=== PATIENT | male | born 1995 | race Caucasian/White ===

== ENCOUNTER 2022-03-31 20:17 | Emergency (ER) | payer MEDICAID ==
[2022-03-31 22:26] VITALS: O2SAT 99
[2022-03-31 23:09] LABS: Absolute Neutrophil Ct (ANC) 3.96 x10^3/uL (1.4-6.9); Basophil (Absolute #) 0.05 x10^3/uL (0-0.4); Eosinophil % 2.7 % (0.00-5.0); Eosinophil (Absolute #) 0.16 x10^3/uL (0-0.5); Hematocrit 39.9 % (42-50); Lymphocyte (Absolute #) 1.17 x10^3/uL (1.0-4.6); Lymphocytes % 19.4 % (24.0-44.0); Mean Cell Volume 93.2 fL (78-100); Mean Corpuscular Hemoglobin 30.4 pg (26-32); Mean Corpuscular Hgb Concent. 32.6 g/dL (32-36); Mean Platelet Volume 11.1 fL (7.5-11.0); Monocyte (Absolute #) 0.66 x10^3/uL (0.0-1.3); Monocytes % 10.9 % (0.0-12.0); Neutrophil % 65.7 % (36.0-66.0); Platelet Count 249 x10^3/uL (150-450); Red Blood Count 4.28 x10^6/uL (4.1-5.6); Red Cell Distribution Width 12.6 % (11.5-14.0)
[2022-03-31 23:16] LABS: ALBUMIN 4.6 g/dL (3.5-5.0); ALKALINE PHOSPHATASE 102 U/L (38-126); AMYLASE 79 U/L (30-110); ANION GAP 12.9 MEQ/L (5-15); BLOOD UREA NITROGEN 12 mg/dL (9-20); CHLORIDE 107 mmol/L (98-107); Calcium 9.1 mg/dL (8.4-10.2); Carbon Dioxide 27 mmol/L (22-30); Creatinine 1 1.16 mg/dL (0.66-1.25); EST GLOMERULAR FILTRATION RATE > 60.0 ML/MIN; Glucose 107 mg/dL (74-106); LIPASE 143 U/L (23-300); SGOT/AST 50 U/L (17-59); SGPT/ALT 54 U/L (0-50); SODIUM 143 mmol/L (137-145); Total Protein 8.2 g/dL (6.3-8.2)
--- NOTE | 2022-03-31 23:36 | ERPHSYRPT ---
- History of Present Illness Historian: patient Exam Limitations: no limitations Patient Subjective Stated Complaint: Generalized sharp abdominal pain. Triage Nursing Assessment: Pt ambulated to room. A&O X 3. Skin color WNL for race. Pt c/o generalized sharp abdominal pain across all 4 quadrants. Lung sounds clear, bowel sounds present x 4. Abdomen soft and non-distended. Denies N/V. Does report some diarrhea 03/29/22 but none today. Physician History: 28 yo wm w epigastric pain x 2 days. Pain is 8/10 and stabbing. Nothing makes it better or worse. He denies N/V/D/fever/melena/hematochezia/dysuria/hematuria/cough/coryza. Timing/Duration: day(s) (2 days) Quality: sharpness, stabbing Abdominal Pain Onset Location: epigastric Pain Radiation: no radiation Severity of Pain-Max: severe Severity of Pain-Current: severe Modifying Factors: Improves With: nothing Associated Symptoms: No back, No chest pain, No diaphoresis, No diarrhea, No fev er/chills, No fatigue, No headache, No heartburn, No loss of appetite, No nausea, No neck pain, No rash, No shortness of breath, No syncope, No testicular pain, No vomiting, No weakness Previous symptoms: no prior history Allergies/Adverse Reactions: No Known Drug Allergies Allergy (Unverified 03/31/22 22:06) Home Medications: Clobazam [Onfi] 20 mg PO QAM 03/31/22 [History] Clobazam [Onfi] 40 mg PO QHS 03/31/22 [History] Escitalopram Oxalate 5 mg PO QAM 03/31/22 [History] LORazepam [Lorazepam] 1 mg PO TID 03/31/22 [History] Lamotrigine 100 mg [lamICTAL 100MG TABLET] 300 mg PO QHS 03/31/22 [History] Topiramate 100 mg [Topamax 100 MG] 100 mg PO QAM 03/31/22 [History] Topiramate 100 mg [Topamax 100 MG] 200 mg PO QHS 03/31/22 [History] Trazodone HCl 100 mg PO QHS 03/31/22 [History] lamoTRIgine [Lamotrigine] 150 mg PO QAM 03/31/22 [History] Travel Risk - International Travel Have you traveled outside of the country in past 3 weeks: No - Coronavirus Screening Are you exhibiting any of the following symptoms?: No Close contact with a COVID-19 positive Pt in past 14-21 Days: No - Vaccine Status Have you recieved a Covid-19 vaccination: No - Review of Systems Constitutional: No Symptoms Eyes: No Symptoms Ears, Nose, & Throat: No Symptoms Respiratory: No Symptoms Cardiac: No Symptoms Abdominal/Gastrointestinal: No Symptoms, Abdominal Pain Genitourinary Symptoms: No Symptoms Musculoskeletal: No Symptoms Skin: No Symptoms Neurological: No Symptoms Psychological: No Symptoms Endocrine: No Symptoms Hematologic/Lymphatic: No Symptoms Immunological/Allergic: No Symptoms - Past Medical History Pertinent Past Medical History: Yes Neurological History: Epilepsy, Migraines, Seizures ENT History: No Pertinent History Cardiac History: No Pertinent History Respiratory History: No Pertinent History Endocrine Medical History: No Pertinent History Musculoskeletal History: No Pertinent History GI Medical History: No Pertinent History History: No Pertinent History Psycho-Social History: No Pertinent History Male Reproductive Disorders: No Pertinent History - Past Surgical History Past Surgical History: Yes Neuro Surgical History: Other Cardiac: No Pertinent History Respiratory: No Pertinent History Gastrointestinal: No Pertinent History Genitourinary: No Pertinent History Musculoskeletal: No Pertinent History Male Surgical History: No Pertinent History Other Surgical History: vagal nerve stimulator - Social History Smoking Status: Never smoker Drug Use: none Patient Lives Alone: Yes Significant Family History: no pertinent family hx - Nursing Vital Signs Nursing Vital Signs: Initial Vital Signs Temperature 97.4 F 03/31/22 22:16 Pulse Rate 78 03/31/22 22:16 Respiratory Rate 16 03/31/22 22:16 Blood Pressure 130/92 03/31/22 22:16 O2 Sat by Pulse Oximetry 99 03/31/22 22:16 Pain Scale Pain Intensity 6 WNL - Physical Exam General Appearance: no apparent distress Eye Exam: PERRL/EOMI, eyes nml inspection Ears, Nose, Throat Exam: normal ENT inspection, TMs normal, pharynx normal, moist mucous membranes Neck Exam: normal inspection, non-tender, supple, full range of motion, No meningismus, No mass, No Brudzinski, No Kernig's Respiratory Exam: normal breath sounds, lungs clear, airway intact Cardiovascular Exam: regular rate/rhythm, normal heart sounds, normal peripheral pulses, capillary refill <2 sec, No murmur Gastrointestinal/Abdomen Exam: soft, normal bowel sounds, tenderness (Mild epigastric TTP wo guarding or rebound) Back Exam: normal inspection, normal range of motion, No CVA tenderness, No vertebral tenderness Extremity Exam: normal inspection, normal range of motion Neurologic Exam: alert, oriented x 3, cooperative, toby maker II-XII nml as tested, normal mood/affect, nml cerebellar function, nml station & gait, sensation nml Skin Exam: normal color, warm, dry, No rash Lymphatic Exam: No adenopathy SpO2 Interpretation: normal SpO2: 99 O2 Delivery: Room Air - Course Nursing assessment & vital signs reviewed: Yes - CT Exams Abdomen/Pelvis CT Interpretation: Tele-radiologist Report (NAD) Ordered Tests: Active Orders 24 hr Category Date Time Status ABDOMEN AND PELVIS W/0 CONTRAS [CT] Stat Exams 03/31/22 23:37 Taken AMYLASE Stat Lab 03/31/22 23:04 Completed CBC W DIFF Stat Lab 03/31/22 23:04 Completed CMP Stat Lab 03/31/22 23:04 Completed LIPASE Stat Lab 03/31/22 23:04 Completed Lactic Acid Stat Lab 03/31/22 23:04 Completed Medication Summary Discontinued Medications Generic Name Dose Route Start Last Admin Trade Name Yoana PRN Reason Stop Dose Admin Ketorolac Tromethamine 15 mg 03/31/22 23:37 03/31/22 23:41 Ketorolac Tromethamine 30 Mg/Ml Inj IV 03/31/22 23:38 15 mg STAT ONE Administration Ketorolac Tromethamine Confirm 03/31/22 23:40 Ketorolac Tromethamine 30 Mg/Ml Inj Administered 03/31/22 23:41 Dose 30 mg .ROUTE .[employer] ONE Lab/Rad Data: Laboratory Result Diagrams 03/31/22 23:04 03/31/22 23:04 Laboratory Results 04/01/22 03/31/22 03/31/22 Range/Units 00:25 23:04 23:04 WBC 6.0 (4.0-10.5) x10^3/uL RBC 4.28 (4.1-5.6) x10^6/uL Hgb 13.0 (12.5-18.0) g/dL Hct 39.9 L (42-50) % MCV 93.2 (78-100) fL MCH 30.4 (26-32) pg MCHC 32.6 (32-36) g/dL RDW 12.6 (11.5-14.0) % Plt Count 249 (150-450) x10^3/uL MPV 11.1 H (7.5-11.0) fL Gran % 65.7 (36.0-66.0) % Immature Gran % (Auto) 0.5 H (0.00-0.4) % Nucleat RBC Rel Count 0.0 (0.00-0.1) % Eos # (Auto) 0.16 (0-0.5) x10^3/uL Immature Gran # (Auto) 0.03 (0.00-0.03) x10^3u/L Absolute Lymphs (auto) 1.17 (1.0-4.6) x10^3/uL Absolute Monos (auto) 0.66 (0.0-1.3) x10^3/uL Absolute Nucleated RBC 0.00 (0.00-0.01) x10^3u/L Lymphocytes % 19.4 L (24.0-44.0) % Monocytes % 10.9 (0.0-12.0) % Eosinophils % 2.7 (0.00-5.0) % Basophils % 0.8 (0.0-0.4) % Absolute Granulocytes 3.96 (1.4-6.9) x10^3/uL Basophils # 0.05 (0-0.4) x10^3/uL Sodium 143 (137-145) mmol/L Potassium 4.0 (3.5-5.1) mmol/L Chloride 107 (98-107) mmol/L Carbon Dioxide 27 (22-30) mmol/L Anion Gap 12.9 (5-15) MEQ/L BUN 12 (9-20) mg/dL Creatinine 1.16 (0.66-1.25) mg/dL Estimated GFR > 60.0 ML/MIN Glucose 107 H (74-106) mg/dL Lactic Acid 0.8 (0.4-2.0) Calcium 9.1 (8.4-10.2) mg/dL Total Bilirubin 0.20 (0.2-1.3) mg/dL AST 50 (17-59) U/L ALT 54 H (0-50) U/L Alkaline Phosphatase 102 (38-126) U/L Serum Total Protein 8.2 (6.3-8.2) g/dL Albumin 4.6 (3.5-5.0) g/dL Amylase 79 (30-110) U/L Lipase 143 (23-300) U/L - Progress Progress: improved Progress Note: 04/01/22 00:43 Pt given 15mg IV Toradol w improvement in pain Counseled pt/family regarding: lab results, diagnosis, need for follow-up, rad results - Departure Departure Disposition: Home Clinical Impression: Abdominal pain Condition: Stable Critical Care Time: No Referrals: DOCTOR,NO FAMILY [Primary Care Provider] - Follow up/PCP as directed Instructions: Severe Abdominal Pain, Adult (DC) Additional Instructions: Follow up with your family MD in 1-2 days Return to ER for increasing pain or temperature greater than 100.5
[2022-03-31] MEDS ORDERED: TORAdol 30 mg Injection ONE (23:40)
[2022-03-31] MEDS: TORAdol 30 mg Injection IV ONE (23:41)
[2022-03-31 23:50] VITALS: BP 128/90; PULSE 64
--- NOTE | 2022-04-01 09:08 | XRAY ---
Indication: Epigastric pain. Multiple contiguous axial images obtained through the abdomen and pelvis without contrast. Comparison: None Lung bases demonstrates minimal left base subsegmental atelectasis/scarring. Heart not enlarged. Stomach is distended with food/fluid. Noncontrasted stomach and bowel loops appear nonobstructed with normal appendix. No free fluid/air. Gallbladder contracted without gallstones. Nonobstructing faint bilateral nephrocalcinosis. Remaining liver, gallbladder, pancreas, spleen, adrenal glands, kidneys, ureters, bladder, and aorta are unremarkable for noncontrast exam. Osseous structures intact. No ventral or inguinal hernias. Impression: Nonobstructing faint bilateral nephrocalcinosis. Remaining CT abdomen/pelvis without contrast exam is negative. Comment: Preliminary interpretation made by [facility]. No critical discrepancy.
== END 2022-04-01 00:53 | disposition home or self-care (01) ==
LOC: ED 20:17
DX: R10.13 Epigastric pain (principal); Z79.899 Other long term (current) drug therapy; Z28.310 Unvaccinated for COVID-19
CPT/HCPCS: 36415; 74176; 80053; 82150; 83605; 83690; 85025; 96374; 99283; J1885

== ENCOUNTER 2022-12-02 22:36 | Observation (INO) | payer MEDICAID ==
--- NOTE | 2022-12-02 23:10 | ERPHSYRPT ---
- History of Present Illness Source: patient, family Exam Limitations: no limitations Patient Subjective Stated Complaint: pt has had multiple seizures today. one at 1900 at [facility] and one at 2029 at home. pt has laceration on top of scalp, pt is here to get it looked at- not necesarily for seizures Triage Nursing Assessment: pt ambulatory to bed by self, pt alert and oriented x3, pt has had multiple seizures today, pt on multiple meds for seizures, at 1930 pt had seizure at [facility] and hit top of head on [facility] shelf, ambulance was called but patient did not want to come to hospital at the time, pt had a 2nd seizure at 2029 at home and busted open that same laceration on the top of his head, laceration is 2 cm x 0.5 cm, laceration still slightly bleeding, Physician History: Patient is a 27-year-old male with past medical history of epilepsy presents to the ER after having multiple seizures today and a head injury. Patient reports he was at [facility] and had a seizure that resulted in him having loss of consciousness and hitting his head on a metal shelf. Patient reports having a small laceration with mild bleeding from it. Patient reports EMS was called but at the time patient was not reluctant to go to the ER. Patient was taken back home. Patient reports he was taking a shower and had a second seizure. Patient is alert and oriented x4. Denies having any focal weaknesses. Patient reports he has had multiple seizures in the past week. Patient reports he has not recently seen a neurologist. Patient is taking his medications as prescribed. Denies having any headaches, blurry vision, loss lightheadedness, chest pain, shortness of breath, nausea/vomiting. Allergies/Adverse Reactions: No Known Drug Allergies Allergy (Verified 12/02/22 22:44) Home Medications: Clobazam [Onfi] 20 mg PO QAM 03/31/22 [History] Clobazam [Onfi] 40 mg PO QHS 03/31/22 [History] Escitalopram Oxalate 5 mg PO QAM 03/31/22 [History] LORazepam [Lorazepam] 1 mg PO TID 03/31/22 [History] Lamotrigine 100 mg [lamICTAL 100MG TABLET] 300 mg PO QHS 03/31/22 [History] Topiramate 100 mg [Topamax 100 MG] 100 mg PO QAM 03/31/22 [History] Topiramate 100 mg [Topamax 100 MG] 200 mg PO QHS 03/31/22 [History] Trazodone HCl 100 mg PO QHS 03/31/22 [History] lamoTRIgine [Lamotrigine] 150 mg PO QAM 03/31/22 [History] Hx Tetanus, Diphtheria Vaccination/Date Given: No Hx Influenza Vaccination/Date Given: No Hx Pneumococcal Vaccination/Date Given: No Immunizations Up to Date: Yes Travel Risk - International Travel Have you traveled outside of the country in past 3 weeks: No - Coronavirus Screening Are you exhibiting any of the following symptoms?: No Close contact with a COVID-19 positive Pt in past 14-21 Days: No - Vaccine Status Have you recieved a Covid-19 vaccination: No - Review of Systems Constitutional: No Fever, No Chills Eyes: No Symptoms Ears, Nose, & Throat: No Symptoms Respiratory: No Cough, No Dyspnea Cardiac: No Chest Pain, No Edema, No Syncope Abdominal/Gastrointestinal: No Abdominal Pain, No Nausea, No Vomiting, No Diarrhea Genitourinary Symptoms: No Dysuria Musculoskeletal: Fall (He reports head trauma.), No Back Pain, No Neck Pain Skin: No Rash Neurological: Seizure, No Dizziness, No Focal Weakness, No Sensory Changes Psychological: No Symptoms Endocrine: No Symptoms All Other Systems: Reviewed and Negative - Past Medical History Pertinent Past Medical History: Yes Neurological History: Epilepsy, Migraines, Seizures ENT History: No Pertinent History Cardiac History: No Pertinent History Respiratory History: No Pertinent History Endocrine Medical History: No Pertinent History Musculoskeletal History: No Pertinent History GI Medical History: No Pertinent History History: No Pertinent History Psycho-Social History: No Pertinent History Male Reproductive Disorders: No Pertinent History - Past Surgical History Past Surgical History: Yes Neuro Surgical History: Other Cardiac: No Pertinent History Respiratory: No Pertinent History Gastrointestinal: No Pertinent History Genitourinary: No Pertinent History Musculoskeletal: No Pertinent History Male Surgical History: No Pertinent History Other Surgical History: vagal nerve stimulator - Social History Smoking Status: Never smoker Exposure to second hand smoke: No Drug Use: none Patient Lives Alone: Yes Significant Family History: no pertinent family hx - Nursing Vital Signs Nursing Vital Signs: Initial Vital Signs Temperature 98.7 F 05/03/23 22:46 Pulse Rate 84 12/02/22 22:46 Respiratory Rate 18 12/02/22 22:46 Blood Pressure 101/67 12/02/22 22:46 O2 Sat by Pulse Oximetry 98 12/02/22 22:46 Pain Scale Pain Intensity 3 - Physical Exam General Appearance: no apparent distress, alert Eye Exam: PERRL/EOMI, eyes nml inspection Ears, Nose, Throat Exam: normal ENT inspection, pharynx normal, moist mucous membranes Neck Exam: normal inspection, non-tender, supple, full range of motion Respiratory Exam: normal breath sounds, lungs clear, No respiratory distress Cardiovascular Exam: regular rate/rhythm, normal heart sounds, normal peripheral pulses Gastrointestinal/Abdomen Exam: soft, normal bowel sounds, No tenderness, No mass Back Exam: normal inspection, normal range of motion, No CVA tenderness, No vertebral tenderness Extremity Exam: normal inspection, normal range of motion, pelvis stable Neurologic Exam: alert, oriented x 3, cooperative, hop grower II-XII nml as tested (Normal strength and sensation of upper/lower extremities.), normal mood/affect, nml cerebellar function, nml station & gait, sensation nml, No motor deficits Skin Exam: normal color, warm, dry, No rash Lymphatic Exam: No adenopathy SpO2 Interpretation: normal SpO2: 98 O2 Delivery: Room Air Comments: 12/03/22 00:00 Head exam noted to have a laceration at the top of the head at about 2 cm x 1 mm along mild bleeding. Ordered Tests: Active Orders 24 hr Category Date Time Status EKG-ER Only STAT Care 12/02/22 23:45 Active Pulse Oximetry (ED) STAT Care 12/02/22 23:45 Active Seizure Precautions -SCCHED STAT Care 12/02/22 23:45 Active HEAD WITHOUT CONTRAST [CT] Stat Exams 12/02/22 23:46 Completed Lab/Rad Data: Laboratory Result Diagrams 12/02/22 00:09 12/02/22 00:09 Laboratory Results 12/02/22 12/02/22 Range/Units 00:09 00:09 WBC 6.2 (4.0-10.5) x10^3/uL RBC 4.14 (4.1-5.6) x10^6/uL Hgb 12.6 (12.5-18.0) g/dL Hct 38.8 L (42-50) % MCV 93.7 (78-100) fL MCH 30.4 (26-32) pg MCHC 32.5 (32-36) g/dL RDW 13.6 (11.5-14.0) % Plt Count 195 (150-450) x10^3/uL MPV 10.8 (7.5-11.0) fL Gran % 68.7 H (36.0-66.0) % Immature Gran % (Auto) 0.3 (0.00-0.4) % Nucleat RBC Rel Count 0.0 (0.00-0.1) % Eos # (Auto) 0.16 (0-0.5) x10^3/uL Immature Gran # (Auto) 0.02 (0.00-0.03) x10^3u/L Absolute Lymphs (auto) 1.19 (1.0-4.6) x10^3/uL Absolute Monos (auto) 0.51 (0.0-1.3) x10^3/uL Absolute Nucleated RBC 0.00 (0.00-0.01) x10^3u/L Lymphocytes % 19.3 L (24.0-44.0) % Monocytes % 8.3 (0.0-12.0) % Eosinophils % 2.6 (0.00-5.0) % Basophils % 0.8 (0.0-0.4) % Absolute Granulocytes 4.25 (1.4-6.9) x10^3/uL Basophils # 0.05 (0-0.4) x10^3/uL Sodium 142 (137-145) mmol/L Potassium 4.1 (3.5-5.1) mmol/L Chloride 107 (98-107) mmol/L Carbon Dioxide 23 (22-30) mmol/L Anion Gap 15.7 H (5-15) MEQ/L BUN 15 (9-20) mg/dL Creatinine 1.45 H (0.66-1.25) mg/dL Estimated GFR > 60.0 ML/MIN Glucose 97 (74-106) mg/dL Calcium 8.4 (8.4-10.2) mg/dL Total Bilirubin 0.30 (0.2-1.3) mg/dL AST 26 (17-59) U/L ALT 32 (0-50) U/L Alkaline Phosphatase 102 (38-126) U/L Serum Total Protein 7.4 (6.3-8.2) g/dL Albumin 4.0 (3.5-5.0) g/dL - Progress Progress: unchanged Progress Note: 12/03/22 03:54 Patient reports feeling better. Pt denies having any changes in mentation. Patient has been A&O x3 since arrival to ED. Pt has significant hx of epilepsy with no recent follow up with neurology. Spoke to Dr. Charlse regarding patient case, accept patient for observation. Discussed with : Felicita Will see patient in: hospital (observation) - Departure Departure Disposition: Observation Clinical Impression: Seizures, Epilepsy Condition: Stable Critical Care Time: No Referrals: MITA VELASQUEZ MD [Primary Care Provider] - Follow up/PCP as directed
[2022-12-03 00:12] LABS: Absolute Neutrophil Ct (ANC) 4.25 x10^3/uL (1.4-6.9); BASOPHIL % 0.8 % (0.0-0.4); Basophil (Absolute #) 0.05 x10^3/uL (0-0.4); Eosinophil % 2.6 % (0.00-5.0); Eosinophil (Absolute #) 0.16 x10^3/uL (0-0.5); Hematocrit 38.8 % (42-50); Hemoglobin 12.6 g/dL (12.5-18.0); IMMATURE GRAN # 0.02 x10^3u/L (0.00-0.03); IMMATURE GRAN % 0.3 % (0.00-0.4); Lymphocyte (Absolute #) 1.19 x10^3/uL (1.0-4.6); Lymphocytes % 19.3 % (24.0-44.0); Mean Cell Volume 93.7 fL (78-100); Mean Corpuscular Hemoglobin 30.4 pg (26-32); Mean Corpuscular Hgb Concent. 32.5 g/dL (32-36); Mean Platelet Volume 10.8 fL (7.5-11.0); Monocyte (Absolute #) 0.51 x10^3/uL (0.0-1.3); Monocytes % 8.3 % (0.0-12.0); Neutrophil % 68.7 % (36.0-66.0); Platelet Count 195 x10^3/uL (150-450); Red Blood Count 4.14 x10^6/uL (4.1-5.6); Red Cell Distribution Width 13.6 % (11.5-14.0); White Blood Count 6.2 x10^3/uL (4.0-10.5)
[2022-12-03 00:25] LABS: ALKALINE PHOSPHATASE 102 U/L (38-126); ANION GAP 15.7 MEQ/L (5-15); BLOOD UREA NITROGEN 15 mg/dL (9-20); CHLORIDE 107 mmol/L (98-107); Calcium 8.4 mg/dL (8.4-10.2); Carbon Dioxide 23 mmol/L (22-30); Creatinine 1 1.45 mg/dL (0.66-1.25); EST GLOMERULAR FILTRATION RATE > 60.0 ML/MIN; Glucose 97 mg/dL (74-106); Potassium 4.1 mmol/L (3.5-5.1); SGOT/AST 26 U/L (17-59); SGPT/ALT 32 U/L (0-50); SODIUM 142 mmol/L (137-145); Total Protein 7.4 g/dL (6.3-8.2)
--- NOTE | 2022-12-03 03:24 | XRAY ---
CLINICAL HISTORY:Multiple seizures today; COMPARISON:None; TECHNIQUES:Multiple, contiguous, non-enhanced CT scan of the brain in the axial plane with multiplanar reconstructions in bony and soft tissue windows; FINDINGS: Normal CT attenuation of both cerebral hemispheres with no areas of abnormal attenuation values. No suspicious space-occupying lesions. No intra or extra-axial collections of fresh blood density. Normal size and shape of the ventricles, basal cisterns, and cortical sulci. The basal ganglia, thalamus, and internal capsule appear normal. Brainstem and sandip appear normal. No shift of midline structures. Unremarkable posterior fossa. Largely preserved cranial calvarial bones. Visualized paranasal sinuses appear clear. IMPRESSION: Unremarkable study of CT brain. No acute intracranial abnormality. Electronically Signed by: Leland Abraham MD. (12/03/2022 02:14:34 [employer])
[2022-12-03] MEDS ORDERED: TORAdol 30 mg Injection IV PRN (04:32)
[2022-12-03] MEDS ORDERED: TYLENOL 325 MG PO PRN (04:32)
[2022-12-03] MEDS ORDERED: Keppra 250 MG PO SCH (11:30)
[2022-12-03] MEDS ORDERED: Lexapro PO SCH (11:30)
[2022-12-03] MEDS ORDERED: lamICTAL 100MG TABLET PO SCH ×2 (11:30→22:00)
[2022-12-03] MEDS ORDERED: KEPPRA PO SCH (11:30)
[2022-12-03] MEDS ORDERED: MEDICATION INTERVENTION MC SCH (11:30)
[2022-12-03] MEDS ORDERED: TOPIRAMATE PO SCH ×2 (11:30→22:00)
[2022-12-03 11:32] VITALS: BP 105/57; PULSE 72; O2SAT 95
[2022-12-03] MEDS ORDERED: Ativan 1 MG PO SCH (15:00)
--- NOTE | 2022-12-03 17:56 | PCM.SSS ---
History of Present Illness - Chief Complaint Chief Complaint: Seizures x2 History of Present Illness: is a 27 year old male.with past medical history of epilepsy presents to the ER after having multiple seizures today and a head injury. Patient reports he was at [facility] and had a seizure that resulted in him having loss of consciousness and hitting his head on a metal shelf. Patient reports having a small laceration with mild bleeding from it. Patient reports EMS was called but at the time patient was not reluctant to go to the ER. Patient was taken back home. Patient reports he was taking a shower and had a second seizure. Patient is alert and oriented x4. Denies having any focal weaknesses. Patient reports he has had multiple seizures in the past week. Patient reports he has not recently seen a neurologist. Patient is taking his medications as prescribed. Denies having any headaches, blurry vision, loss lightheadedness, chest pain, shortness of breath, nausea/vomiting. - Review of Systems Constitutional: No Fever, No Chills Eyes: No Symptoms Ears, Nose, & Throat: No Symptoms Respiratory: No Cough, No Short Of Breath Cardiac: No Chest Pain, No Edema, No Syncope Abdominal/Gastrointestinal: No Abdominal Pain, No Nausea, No Vomiting, No Diarrhea Genitourinary Symptoms: No Dysuria Musculoskeletal: No Back Pain, No Neck Pain Skin: No Rash Neurological: Seizure, No Dizziness, No Focal Weakness, No Sensory Changes Psychological: No Symptoms Endocrine: No Symptoms Hematologic/Lymphatic: No Symptoms Immunological/Allergic: No Symptoms Medications & Allergies Home Medications: Home Medication List Clobazam [Onfi] 20 mg PO QAM 03/31/22 [History Confirmed 12/02/22] Clobazam [Onfi] 40 mg PO QHS 03/31/22 [History Confirmed 12/02/22] Escitalopram Oxalate 5 mg PO QAM 03/31/22 [History Confirmed 12/02/22] LORazepam [Lorazepam] 1 mg PO TID 03/31/22 [History Confirmed 12/02/22] Lamotrigine 100 mg [lamICTAL 100MG TABLET] 300 mg PO QHS 03/31/22 [History Confirmed 12/02/22] Topiramate 100 mg [Topamax 100 MG] 100 mg PO QAM 03/31/22 [History C onfirmed 12/02/22] Topiramate 100 mg [Topamax 100 MG] 200 mg PO QHS 03/31/22 [History Confirmed 12/02/22] Trazodone HCl 100 mg PO QHS 03/31/22 [History Confirmed 12/02/22] lamoTRIgine [Lamotrigine] 150 mg PO QAM 03/31/22 [History Confirmed 12/02/22] Levetiracetam [Keppra] 750 mg PO BID 12/03/22 [History Confirmed 12/03/22] Allergies/Adverse Reactions: Allergies Allergy/AdvReac Type Severity Reaction Status Date / Time No Known Drug Allergies Allergy Verified 12/02/22 22:44 - Past Medical History Past Medical History: Yes Neurological History: Seizures ENT History: No Pertinent History, Cataracts Cardiac History: No Pertinent History Respiratory History: No Pertinent History Endocrine Medical History: No Pertinent History Musculoskelatal History: No Pertinent History GI Medical History: No Pertinent History History: No Pertinent History Pyscho-Social History: No Pertinent History Male Reproductive Disorders: No Pertinent History Comment: VVagus nerve Stimulator device implanted - Past Surgical History Past Surgical History: Yes Neuro Surgical History: Other Cardiac History: No Pertinent History Respiratory Surgery: No Pertinent History GI Surgical History: No Pertinent History Genitourinary Surgical Hx: No Pertinent History Musculskeletal Surgical Hx: No Pertinent History Male Surgical History: No Pertinent History Other Surgical History: vagal nerve stimulator - Social History Smoking Status: Never smoker Exposure to second hand smoke: Yes Alcohol: None Drug Use: none Significant Family History: no pertinent family hx - Physical Exam Vital Signs: Vital Signs - 24 hr Temp Pulse Resp BP BP Pulse Ox 12/03/22 11:32 97.7 F 72 17 105/57 95 12/03/22 07:20 97.8 F 69 17 94/81 92 L 12/03/22 05:00 98.7 F 58 L 18 114/75 99 12/03/22 04:00 69 16 96/62 97 12/03/22 03:57 98 12/03/22 03:00 62 17 109/73 95 12/03/22 02:00 61 18 80/56 95 12/03/22 01:00 70 18 98/66 93 L 12/03/22 00:04 97 12/03/22 00:00 20 92/65 96 12/02/22 23:00 16 108/73 98 12/02/22 22:46 98.7 F 84 18 101/67 98 General Appearance: no apparent distress, alert Neurologic Exam: alert, oriented x 3, cooperative, normal mood/affect, nml cerebellar function, nml station & gait, sensation nml, No motor deficits Eye Exam: PERRL/EOMI, eyes nml inspection Ears, Nose, Throat Exam: normal ENT inspection, TMs normal, pharynx normal, moist mucous membranes Neck Exam: normal inspection, non-tender, supple, full range of motion Respiratory Exam: normal breath sounds, lungs clear, No respiratory distress Cardiovascular Exam: regular rate/rhythm, normal heart sounds, normal peripheral pulses Gastrointestinal/Abdomen Exam: soft, normal bowel sounds, No tenderness, No mass Back Exam: normal inspection, normal range of motion, No CVA tenderness, No vertebral tenderness Extremity Exam: normal inspection, normal range of motion, pelvis stable Skin Exam: normal color, warm, dry, No rash Lymphatic Exam: No adenopathy Results - Labs Lab/Micro Results: Lab Results-Last 24 Hours 12/02/22 12/02/22 Range/Units 00:09 00:09 WBC 6.2 (4.0-10.5) x10^3/uL RBC 4.14 (4.1-5.6) x10^6/uL Hgb 12.6 (12.5-18.0) g/dL Hct 38.8 L (42-50) % MCV 93.7 (78-100) fL MCH 30.4 (26-32) pg MCHC 32.5 (32-36) g/dL RDW 13.6 (11.5-14.0) % Plt Count 195 (150-450) x10^3/uL MPV 10.8 (7.5-11.0) fL Gran % 68.7 H (36.0-66.0) % Immature Gran % (Auto) 0.3 (0.00-0.4) % Nucleat RBC Rel Count 0.0 (0.00-0.1) % Eos # (Auto) 0.16 (0-0.5) x10^3/uL Immature Gran # (Auto) 0.02 (0.00-0.03) x10^3u/L Absolute Lymphs (auto) 1.19 (1.0-4.6) x10^3/uL Absolute Monos (auto) 0.51 (0.0-1.3) x10^3/uL Absolute Nucleated RBC 0.00 (0.00-0.01) x10^3u/L Lymphocytes % 19.3 L (24.0-44.0) % Monocytes % 8.3 (0.0-12.0) % Eosinophils % 2.6 (0.00-5.0) % Basophils % 0.8 (0.0-0.4) % Absolute Granulocytes 4.25 (1.4-6.9) x10^3/uL Basophils # 0.05 (0-0.4) x10^3/uL Sodium 142 (137-145) mmol/L Potassium 4.1 (3.5-5.1) mmol/L Chloride 107 (98-107) mmol/L Carbon Dioxide 23 (22-30) mmol/L Anion Gap 15.7 H (5-15) MEQ/L BUN 15 (9-20) mg/dL Creatinine 1.45 H (0.66-1.25) mg/dL Estimated GFR > 60.0 ML/MIN Glucose 97 (74-106) mg/dL Calcium 8.4 (8.4-10.2) mg/dL Total Bilirubin 0.30 (0.2-1.3) mg/dL AST 26 (17-59) U/L ALT 32 (0-50) U/L Alkaline Phosphatase 102 (38-126) U/L Serum Total Protein 7.4 (6.3-8.2) g/dL Albumin 4.0 (3.5-5.0) g/dL - Radiology Impressions Radiology Exams & Impressions: Radiology Procedures Category Date Time Status HEAD WITHOUT CONTRAST [CT] Stat Exams 12/02/22 23:46 Completed Assessment/Plan (1) Epilepsy Status: Acute Qualifiers: Epilepsy type: generalized idiopathic Intractability: not intractable Status epilepticus: without status epilepticus Qualified Code(s): G40.309 - Generalized idiopathic epilepsy and epileptic syndromes, not intractable, without status epilepticus Assessment & Plan: Chief Complaint Diagnosis Seizures Allergies Allergy/AdvReac Type Severity Reaction Status Date / Time No Known Drug Allergies Allergy Verified 12/02/22 22:44 Vital Signs (Last 24 hours) Temp Pulse Resp BP BP Pulse Ox 12/03/22 11:32 97.7 F 72 17 105/57 95 12/03/22 07:20 97.8 F 69 17 94/81 92 L 12/03/22 05:00 98.7 F 58 L 18 114/75 99 12/03/22 04:00 69 16 96/62 97 12/03/22 03:57 98 12/03/22 03:00 62 17 109/73 95 12/03/22 02:00 61 18 80/56 95 12/03/22 01:00 70 18 98/66 93 L 12/03/22 00:04 97 12/03/22 00:00 20 92/65 96 12/02/22 23:00 16 108/73 98 12/02/22 22:46 98.7 F 84 18 101/67 98 Home Medications Medication Instructions Recorded Confirmed Last Taken Type Levetiracetam [Keppra] 750 mg PO BID 12/03/22 12/03/22 12/02/22 History 750 mg Current Medications Discontinued Medications Generic Name Dose Route Start Last Admin Trade Name Freq PRN Reason Stop Dose Admin Acetaminophen 650 mg 12/03/22 04:32 12/03/22 05:28 Acetaminophen 325 Mg Tablet PO 01/02/23 04:31 650 mg Q4H PRN PRN Administration PAIN AND/OR FEVER Escitalopram Oxalate 5 mg 12/03/22 11:30 12/03/22 12:40 Escitalopram Oxalate 10 Mg Tablet PO 01/02/23 11:29 Not Given QAM ELIZA Ketorolac Tromethamine 30 mg 12/03/22 04:32 Ketorolac Tromethamine 30 Mg/Ml Inj IV 12/08/22 04:31 Q6H PRN PRN PAIN Lamotrigine 150 mg 12/03/22 11:30 12/03/22 11:23 Lamotrigine 100 Mg Tab PO 01/02/23 11:29 150 mg QAM ELIZA Administration Lamotrigine 300 mg 12/03/22 22:00 Lamotrigine 100 Mg Tab PO 01/02/23 21:59 QHS ELIZA Levetiracetam 250 mg 12/03/22 11:30 12/03/22 11:22 Levetiracetam 250 Mg Tablet PO 01/02/23 11:29 250 mg BID ELIZA Administration Levetiracetam 500 mg 12/03/22 11:30 12/03/22 11:28 Levetiracetam 500 Mg Tablet PO 01/02/23 11:29 500 mg BID ELIZA Administration Lorazepam 1 mg 12/03/22 15:00 12/03/22 15:04 Lorazepam 1 Mg Tablet PO 01/02/23 14:59 Not Given TID ELIZA Miscellaneous Information 1 each 12/03/22 11:30 Medication Intervention 1 Each Each 01/02/23 11:29 .RN TO CHECK ELIZA Topiramate 100 mg 12/03/22 11:30 12/03/22 11:23 Topiramate 50 Mg Tablet PO 01/02/23 11:29 100 mg QAM ELIZA Administration Topiramate 200 mg 12/03/22 22:00 Topiramate 50 Mg Tablet PO 01/02/23 21:59 QHS ELIZA Trazodone HCl 100 mg 12/03/22 22:00 Trazodone Hcl 50 Mg Tablet PO 01/02/23 21:59 QHS ELIZA Intake & Output (Last 24 hours) 12/01/22 12/02/22 12/03/22 12/04/22 11:59 11:59 11:59 11:59 Intake Total 60 120 Balance 60 120 Weight 88.6 kg Laboratory Results (Last 24 hours) 12/02/22 12/02/22 00:09 00:09 WBC 6.2 RBC 4.14 Hgb 12.6 Hct 38.8 L MCV 93.7 MCH 30.4 MCHC 32.5 RDW 13.6 Plt Count 195 MPV 10.8 Gran % 68.7 H Immature Gran % (Auto) 0.3 Nucleat RBC Rel Count 0.0 Eos # (Auto) 0.16 Immature Gran # (Auto) 0.02 Absolute Lymphs (auto) 1.19 Absolute Monos (auto) 0.51 Absolute Nucleated RBC 0.00 Lymphocytes % 19.3 L Monocytes % 8.3 Eosinophils % 2.6 Basophils % 0.8 Absolute Granulocytes 4.25 Basophils # 0.05 Sodium 142 Potassium 4.1 Chloride 107 Carbon Dioxide 23 Anion Gap 15.7 H BUN 15 Creatinine 1.45 H Estimated GFR > 60.0 Glucose 97 Calcium 8.4 Total Bilirubin 0.30 AST 26 ALT 32 Alkaline Phosphatase 102 Serum Total Protein 7.4 Albumin 4.0 Orders (Last 24 hours) Category Date Time Status Up With Assistance TOLERATED Activity 12/03/22 04:32 Completed Call Admit Doctor for Orders ON ADMISSION Care 12/03/22 04:32 Completed Code Status Order ROUTINE Care 12/03/22 04:32 Completed EKG-ER Only STAT Care 12/02/22 23:45 Completed IV Care Q6H Care 12/03/22 04:[address] in Observation ROUTINE Care 12/03/22 04:32 Completed Pulse Oximetry (ED) STAT Care 12/02/22 23:45 Completed Seizure Precautions -SCCHED STAT Care 12/02/22 23:45 Completed House Regular Diet Diet 12/03/22 Breakfast Completed Discharge Routine Discharge 12/03/22 12:04 Ordered HEAD WITHOUT CONTRAST [CT] Stat Exams 12/02/22 23:46 Completed Acetaminophen 325 mg [Tylenol 325 mg] Med 12/03/22 04:32 Discontinued 650 mg PO Q4H PRN PRN Escitalopram Oxalate [Lexapro] Med 12/03/22 11:30 Discontinued 5 mg PO QAM KETOROLAC trometh 30 mg Inj [TORAdol 30 mg Injection Med 12/03/22 04:32 Discontinued ] 30 mg IV Q6H PRN PRN Lamotrigine 100 mg [lamICTAL 100MG TABLET] Med 12/03/22 11:30 Discontinued 150 mg PO QAM Lamotrigine 100 mg [lamICTAL 100MG TABLET] Med 12/03/22 22:00 Discontinued 300 mg PO QHS Levetiracetam 250 MG [Keppra 250 MG] Med 12/03/22 11:30 Discontinued 250 mg PO BID Levetiracetam [Keppra] Med 12/03/22 11:30 Discontinued 500 mg PO BID Lorazepam 1 mg [Ativan 1 MG] Med 12/03/22 15:00 Discontinued 1 mg PO TID Medication Intervention Med 12/03/22 11:30 Discontinued 1 each MC .RN TO CHECK Topiramate Med 12/03/22 11:30 Discontinued 100 mg PO QAM Topiramate Med 12/03/22 22:00 Discontinued 200 mg PO QHS Trazodone HCl 50 mg [Desyrel 50 mg] Med 12/03/22 22:00 Discontinued 100 mg PO QHS OT Screen per Nursing Assess ONCE OT 12/03/22 05:27 Completed PT Screen per Nursing Assess ONCE PT 12/03/22 05:27 Completed Transfer Order Routine Transfer 12/03/22 Completed Transfer Order Routine Transfer 12/03/22 Completed Patient Care Notes (Last 24 hours) 12/03/22 15:44 Nursing Note by Alia Martinez PT and pt brother Doc/ caregiver requested this nurse fax paperwork to pt [facility] nurse. This nurse contacted [facility] nurse Анна Holland at [phone] and obtained fax number to send documents. Explanation of care and results were disscussed with Анна Coley, with patient and patient caregiver permission. Анна Coley will try to arrange transportation to neurology appointment on December 09 at 1200, due to pt family stating they most likely could not keep this appointment. Initialized on 12/03/22 15:44 - END OF NOTE Code(s): G40.909 - EPILEPSY, UNSP, NOT INTRACTABLE, WITHOUT STATUS EPILEPTICUS (2) Laceration of scalp Status: Acute Hospital Summary - Hospital Course Hospital Course: Chief Complaint Diagnosis Seizures Allergies Allergy/AdvReac Type Severity Reaction Status Date / Time No Known Drug Allergies Allergy Verified 12/02/22 22:44 Vital Signs (Last 24 hours) Temp Pulse Resp BP BP Pulse Ox 12/03/22 11:32 97.7 F 72 17 105/57 95 12/03/22 07:20 97.8 F 69 17 94/81 92 L 12/03/22 05:00 98.7 F 58 L 18 114/75 99 12/03/22 04:00 69 16 96/62 97 12/03/22 03:57 98 12/03/22 03:00 62 17 109/73 95 12/03/22 02:00 61 18 80/56 95 12/03/22 01:00 70 18 98/66 93 L 12/03/22 00:04 97 12/03/22 00:00 20 92/65 96 12/02/22 23:00 16 108/73 98 12/02/22 22:46 98.7 F 84 18 101/67 98 Home Medications Medication Instructions Recorded Confirmed Last Taken Type Levetiracetam [Keppra] 750 mg PO BID 12/03/22 12/03/22 12/02/22 History 750 mg Current Medications Discontinued Medications Generic Name Dose Route Start Last Admin Trade Name Freq PRN Reason Stop Dose Admin Acetaminophen 650 mg 12/03/22 04:32 12/03/22 05:28 Acetaminophen 325 Mg Tablet PO 01/02/23 04:31 650 mg Q4H PRN PRN Administration PAIN AND/OR FEVER Escitalopram Oxalate 5 mg 12/03/22 11:30 12/03/22 12:40 Escitalopram Oxalate 10 Mg Tablet PO 01/02/23 11:29 Not Given QAM ELIZA Ketorolac Tromethamine 30 mg 12/03/22 04:32 Ketorolac Tromethamine 30 Mg/Ml Inj IV 12/08/22 04:31 Q6H PRN PRN PAIN Lamotrigine 150 mg 12/03/22 11:30 12/03/22 11:23 Lamotrigine 100 Mg Tab PO 01/02/23 11:29 150 mg QAM ELIZA Administration Lamotrigine 300 mg 12/03/22 22:00 Lamotrigine 100 Mg Tab PO 01/02/23 21:59 QHS ELIZA Levetiracetam 250 mg 12/03/22 11:30 12/03/22 11:22 Levetiracetam 250 Mg Tablet PO 01/02/23 11:29 250 mg BID ELIZA Administration Levetiracetam 500 mg 12/03/22 11:30 12/03/22 11:28 Levetiracetam 500 Mg Tablet PO 01/02/23 11:29 500 mg BID ELIZA Administration Lorazepam 1 mg 12/03/22 15:00 12/03/22 15:04 Lorazepam 1 Mg Tablet PO 01/02/23 14:59 Not Given TID ELIZA Miscellaneous Information 1 each 12/03/22 11:30 Medication Intervention 1 Each Each 01/02/23 11:29 .RN TO CHECK ELIZA Topiramate 100 mg 12/03/22 11:30 12/03/22 11:23 Topiramate 50 Mg Tablet PO 01/02/23 11:29 100 mg QAM ELIZA Administration Topiramate 200 mg 12/03/22 22:00 Topiramate 50 Mg Tablet PO 01/02/23 21:59 QHS ELIZA Trazodone HCl 100 mg 12/03/22 22:00 Trazodone Hcl 50 Mg Tablet PO 01/02/23 [facility] Intake & Output (Last 24 hours) 12/01/22 12/02/22 12/03/22 12/04/22 11:59 11:59 11:59 11:59 Intake Total 60 120 Balance 60 120 Weight 88.6 kg Laboratory Results (Last 24 hours) 12/02/22 12/02/22 00:09 00:09 WBC 6.2 RBC 4.14 Hgb 12.6 Hct 38.8 L MCV 93.7 MCH 30.4 MCHC 32.5 RDW 13.6 Plt Count 195 MPV 10.8 Gran % 68.7 H Immature Gran % (Auto) 0.3 Nucleat RBC Rel Count 0.0 Eos # (Auto) 0.16 Immature Gran # (Auto) 0.02 Absolute Lymphs (auto) 1.19 Absolute Monos (auto) 0.51 Absolute Nucleated RBC 0.00 Lymphocytes % 19.3 L Monocytes % 8.3 Eosinophils % 2.6 Basophils % 0.8 Absolute Granulocytes 4.25 Basophils # 0.05 Sodium 142 Potassium 4.1 Chloride 107 Carbon Dioxide 23 Anion Gap 15.7 H BUN 15 Creatinine 1.45 H Estimated GFR > 60.0 Glucose 97 Calcium 8.4 Total Bilirubin 0.30 AST 26 ALT 32 Alkaline Phosphatase 102 Serum Total Protein 7.4 Albumin 4.0 Orders (Last 24 hours) Category Date Time Status Up With Assistance TOLERATED Activity 12/03/22 04:32 Completed Call Admit Doctor for Orders ON ADMISSION Care 12/03/22 04:32 Completed Code Status Order ROUTINE Care 12/03/22 04:32 Completed EKG-ER Only STAT Care 12/02/22 23:45 Completed IV Care Q6H Care 12/03/22 04:[address] in Observation ROUTINE Care 12/03/22 04:32 Completed Pulse Oximetry (ED) STAT Care 12/02/22 23:45 Completed Seizure Precautions -SCCHED STAT Care 12/02/22 23:45 Completed House Regular Diet Diet 12/03/22 Breakfast Completed Discharge Routine Discharge 12/03/22 12:04 Ordered HEAD WITHOUT CONTRAST [CT] Stat Exams 12/02/22 23:46 Completed Acetaminophen 325 mg [Tylenol 325 mg] Med 12/03/22 04:32 Discontinued 650 mg PO Q4H PRN PRN Escitalopram Oxalate [Lexapro] Med 12/03/22 11:30 Discontinued 5 mg PO QAM KETOROLAC trometh 30 mg Inj [TORAdol 30 mg Injection Med 12/03/22 04:32 Discontinued ] 30 mg IV Q6H PRN PRN Lamotrigine 100 mg [lamICTAL 100MG TABLET] Med 12/03/22 11:30 Discontinued 150 mg PO QAM Lamotrigine 100 mg [lamICTAL 100MG TABLET] Med 12/03/22 22:00 Discontinued 300 mg PO QHS Levetiracetam 250 MG [Keppra 250 MG] Med 12/03/22 11:30 Discontinued 250 mg PO BID Levetiracetam [Keppra] Med 12/03/22 11:30 Discontinued 500 mg PO BID Lorazepam 1 mg [Ativan 1 MG] Med 12/03/22 15:00 Discontinued 1 mg PO TID Medication Intervention Med 12/03/22 11:30 Discontinued 1 each MC .RN TO CHECK Topiramate Med 12/03/22 11:30 Discontinued 100 mg PO QAM Topiramate Med 12/03/22 22:00 Discontinued 200 mg PO QHS Trazodone HCl 50 mg [Desyrel 50 mg] Med 12/03/22 22:00 Discontinued 100 mg PO QHS OT Screen per Nursing Assess ONCE OT 12/03/22 05:27 Completed PT Screen per Nursing Assess ONCE PT 12/03/22 05:27 Completed Transfer Order Routine Transfer 12/03/22 Completed Transfer Order Routine Transfer 12/03/22 Completed Patient Care Notes (Last 24 hours) 12/03/22 15:44 Nursing Note by Alia Martinez PT and pt brother Doc/ caregiver requested this nurse fax paperwork to pt [facility] nurse. This nurse contacted [facility] nurse Анна Holland at [phone] and obtained fax number to send documents. Explanation of care and results were disscussed with Анна Coley, with patient and patient caregiver permission. Анна Coley will try to arrange transportation to neurology appointment on December 09 at 1200, due to pt family stating they most likely could not keep this appointment. Initialized on 12/03/22 15:44 - END OF NOTE - Vitals & Intake/Output Vital Signs: Vital Signs Temperature 97.7 F 12/03/22 11:32 Pulse Rate 72 12/03/22 11:32 Respiratory Rate 17 12/03/22 11:32 Blood Pressure 105/57 12/03/22 11:32 O2 Sat by Pulse Oximetry 95 12/03/22 11:32 Intake & Output: Intake & Output 12/01/22 12/02/22 12/03/22 12/04/22 11:59 11:59 11:59 11:59 Intake Total 60 120 Balance 60 120 Weight 88.6 kg - Lab Result Diagrams: 12/02/22 00:09 12/02/22 00:09 Lab Results-Last 24 Hrs: Lab Results-Last 24 Hours 12/02/22 12/02/22 Range/Units 00:09 00:09 WBC 6.2 (4.0-10.5) x10^3/uL RBC 4.14 (4.1-5.6) x10^6/uL Hgb 12.6 (12.5-18.0) g/dL Hct 38.8 L (42-50) % MCV 93.7 (78-100) fL MCH 30.4 (26-32) pg MCHC 32.5 (32-36) g/dL RDW 13.6 (11.5-14.0) % Plt Count 195 (150-450) x10^3/uL MPV 10.8 (7.5-11.0) fL Gran % 68.7 H (36.0-66.0) % Immature Gran % (Auto) 0.3 (0.00-0.4) % Nucleat RBC Rel Count 0.0 (0.00-0.1) % Eos # (Auto) 0.16 (0-0.5) x10^3/uL Immature Gran # (Auto) 0.02 (0.00-0.03) x10^3u/L Absolute Lymphs (auto) 1.19 (1.0-4.6) x10^3/uL Absolute Monos (auto) 0.51 (0.0-1.3) x10^3/uL Absolute Nucleated RBC 0.00 (0.00-0.01) x10^3u/L Lymphocytes % 19.3 L (24.0-44.0) % Monocytes % 8.3 (0.0-12.0) % Eosinophils % 2.6 (0.00-5.0) % Basophils % 0.8 (0.0-0.4) % Absolute Granulocytes 4.25 (1.4-6.9) x10^3/uL Basophils # 0.05 (0-0.4) x10^3/uL Sodium 142 (137-145) mmol/L Potassium 4.1 (3.5-5.1) mmol/L Chloride 107 (98-107) mmol/L Carbon Dioxide 23 (22-30) mmol/L Anion Gap 15.7 H (5-15) MEQ/L BUN 15 (9-20) mg/dL Creatinine 1.45 H (0.66-1.25) mg/dL Estimated GFR > 60.0 ML/MIN Glucose 97 (74-106) mg/dL Calcium 8.4 (8.4-10.2) mg/dL Total Bilirubin 0.30 (0.2-1.3) mg/dL AST 26 (17-59) U/L ALT 32 (0-50) U/L Alkaline Phosphatase 102 (38-126) U/L Serum Total Protein 7.4 (6.3-8.2) g/dL Albumin 4.0 (3.5-5.0) g/dL - Radiology Exams Ordered Rad Exams-Entire Visit: Radiology Procedures Category Date Time Status HEAD WITHOUT CONTRAST [CT] Stat Exams 12/02/22 23:46 Completed - Procedures and Test Procedures and Tests throughout Hospitalization: Therapy Orders & Screens 12/03/22 05:27 OT Screen per Nursing Assess ONCE Comment: Protocol Order Physician Instructions: Greater than 3 points order OT Admission Screening Reason For Exam: Triggered on Admission Diagnosis: Seizures Open Wound/Cellutlitis/Pressure Ulcers: Yes Acute Fx/ORIF/Change in wt bearing status: No Severe MUSCULOSKELETAL pain: No ADL Dysfunction: No Acute CVA w/Hemiparesis/Hemiplegia: No Decreased Functional Mobility/Strength: No Sprain/Strain: No Acute Post-op Mobility Dysfunction: No Total Points: 5 PT Screen per Nursing Assess ONCE Comment: Protocol Order Physician Instructions: Greater than 3 points order PT Admission Screenin Reason For Exam: Triggered on Admission Diagnosis: Seizures Open Wound/Cellutlitis/Pressure Ulcers: Yes Acute Fx/ORIF/Change in wt bearing status: No Severe MUSCULOSKELETAL pain: No ADL Dysfunction: No Acute CVA w/Hemiparesis/Hemiplegia: No Decreased Functional Mobility/Strength: No Sprain/Strain: No Acute Post-op Mobility Dysfunction: No Total Points: 5 - Discharge Discharge Date: 12/03/22 Disposition: Home, Self-Care Condition: Stable Prescriptions: Continue Topiramate 100 mg [Topamax 100 MG] 100 mg PO QAM Escitalopram Oxalate 5 mg PO QAM lamoTRIgine [Lamotrigine] 150 mg PO QAM LORazepam [Lorazepam] 1 mg PO TID Trazodone HCl 100 mg PO QHS Clobazam [Onfi] 40 mg PO QHS Lamotrigine 100 mg [lamICTAL 100MG TABLET] 300 mg PO QHS Clobazam [Onfi] 20 mg PO QAM Topiramate 100 mg [Topamax 100 MG] 200 mg PO QHS Levetiracetam [Keppra] 750 mg PO BID Instructions: Epilepsy in Adults Additional Instructions: Do not wash your hair for three days. You have a follow up appointment scheduled with Dr. Pitts on December 09 at 12:00. If you need to contact him you may call [phone]. He is located at [address] Office [facility], [place] Follow up with: MITA VELASQUEZ MD [Primary Care Provider] - Forms: Discharge Instructions
[2022-12-03] MEDS ORDERED: NON-FORMULARY ITEM (Trazodone Hcl [Trazodone Hcl] 100 MG Tablet) PO SCH (22:00)
[2022-12-03] MEDS ORDERED: NON-FORMULARY ITEM (Levetiracetam [Keppra] 750 MG Tablet) PO SCH (22:00)
[2022-12-03] MEDS ORDERED: NON-FORMULARY ITEM (Topiramate 100 Mg*** [Topamax 100 Mg***] 100 MG Tablet) PO SCH (22:00)
[2022-12-03] MEDS ORDERED: CLOBAZAM 20 MG PO SCH (22:00)
[2022-12-03] MEDS ORDERED: DESYREL 50 MG PO SCH (22:00)
[2022-12-04] MEDS ORDERED: CLOBAZAM 20 MG PO SCH (10:00)
[2022-12-04] MEDS ORDERED: ESCITALOPRAM OXALATE 5 MG PO SCH (10:00)
[2022-12-04] MEDS ORDERED: NON-FORMULARY ITEM (Topiramate 100 Mg*** [Topamax 100 Mg***] 100 MG Tablet) PO SCH (10:00)
== END 2022-12-03 14:59 | disposition home or self-care (01) ==
LOC: ED 22:36 → MED SURG 12-03 04:26
PROVIDERS: ADMIT General Practice; ATTEND General Practice
DX: G40.309 Generalized idiopathic epilepsy and epileptic syndromes, not intractable, without status epilepticus (principal); S01.01XA Laceration without foreign body of scalp, initial encounter; W19.XXXA Unspecified fall, initial encounter; Z79.899 Other long term (current) drug therapy; Z20.828 Contact with and (suspected) exposure to other viral communicable diseases
CPT/HCPCS: 36415; 70450; 80053; 85025; 93005; 94760; 99284; G0378; A9270-GY

== ENCOUNTER 2022-12-13 14:03 | Emergency (ER) | payer MEDICAID ==
[2022-12-13 14:16] VITALS: O2SAT 100
[2022-12-13] MEDS ORDERED: Sodium Chloride 0.9% 1000 ML 1,000 ML IV STA (14:23)
[2022-12-13] MEDS ORDERED: Sodium Chloride 0.9% 1000 ML 1,000 ML ONE (14:26)
[2022-12-13] MEDS ORDERED: TYLENOL EXTRA STRENGTH 500 MG ONE (14:29)
[2022-12-13] MEDS ORDERED: TYLENOL EXTRA STRENGTH 500 MG PO ONE (14:30)
[2022-12-13 14:40] LABS: Hematocrit 39.7 % (42-50); Hemoglobin 13.6 g/dL (12.5-18.0); Mean Cell Volume 92.5 fL (78-100); Mean Corpuscular Hemoglobin 31.7 pg (26-32); Mean Corpuscular Hgb Concent. 34.3 g/dL (32-36); Mean Platelet Volume 10.7 fL (7.5-11.0); Platelet Count 197 x10^3/uL (150-450); Red Blood Count 4.29 x10^6/uL (4.1-5.6); Red Cell Distribution Width 13.7 % (11.5-14.0); White Blood Count 8.2 x10^3/uL (4.0-10.5)
[2022-12-13 14:54] LABS: ALBUMIN 4.3 g/dL (3.5-5.0); ALKALINE PHOSPHATASE 114 U/L (38-126); ANION GAP 17.5 MEQ/L (5-15); BLOOD UREA NITROGEN 14 mg/dL (9-20); CHLORIDE 112 mmol/L (98-107); Calcium 8.8 mg/dL (8.4-10.2); Carbon Dioxide 17 mmol/L (22-30); Creatinine 1 1.05 mg/dL (0.66-1.25); EST GLOMERULAR FILTRATION RATE > 60.0 ML/MIN; Glucose 122 mg/dL (74-106); Potassium 3.7 mmol/L (3.5-5.1); SGOT/AST 27 U/L (17-59); SGPT/ALT 32 U/L (0-50); SODIUM 142 mmol/L (137-145); Total Protein 8.2 g/dL (6.3-8.2)
[2022-12-13] MEDS ORDERED: Zofran 4 MG/2 ML VIAL IV ONE ×2 (15:19→15:42)
[2022-12-13] MEDS ORDERED: Zofran 4 MG/2 ML VIAL ONE ×2 (15:19→15:42)
--- NOTE | 2022-12-13 16:03 | XRAY ---
CLINICAL HISTORY:fall; COMPARISON:None; TECHNIQUES:Multiplanar non-contrast CT cervical spine performed. CTDI: 71 mGy, DLP: 1447 mGy*cm; FINDINGS: Alignment and osseous structures: Loss of lordosis indicates muscle spasm. The vertebral bodies are normal in height. No lytic or sclerotic bone lesion. The craniovertebral measures are unremarkable. Intervertebral disc spaces. Normal disc height is noted. Level by level analysis. C2-C3: No central canal or neuroforaminal stenosis. C3-C4: No central canal or neuroforaminal stenosis. C4-C5: No central canal or neuroforaminal stenosis. C5-C6: No central canal or neuroforaminal stenosis. C6-C7: No central canal or neuroforaminal stenosis. IMPRESSION: 1. Loss of lordosis indicates muscle spasm. 2. Otherwise unremarkable CT cervical spine with no fracture or dislocation seen. Electronically Signed by: Leland Abraham MD. (12/13/2022 14:56:28 CLUB ROOM ATTENDANT)
--- NOTE | 2022-12-13 16:04 | ERPHSYRPT ---
- History of Present Illness Time Seen by Provider: 12/13/22 14:08 Source: patient, EMS Exam Limitations: no limitations Patient Subjective Stated Complaint: Pt had a seizure and hit the back of his head causing a 1 cm laceration Triage Nursing Assessment: Pt brought to the ER by EMS, vitals wnl, rates head pain as 8/10, nausea, denies vomiting, sleepy (could be postictal), pulses normal, skin n/w/d, last seizure a week ago, usually has 1 seizure/week Physician History: 27-year-old with history of seizure disorder poorly controlled on multiple medications, migraine presented in the ER after he had a seizure activity prior to arrival while he was standing and fell backward hitting his head against a countertop with a laceration of the back head. Patient is awake alert and oriented on presentation, complaining of some headache all over. Denies any neck pain or difficulty movements of neck. No focal numbness tingling or weakness reported. Occurred: just prior to arrival Severity: moderate Head Injury Location: occipital, parietal Method of Injury: fell Loss of Consciousness: seizure Associated Symptoms: nausea, headaches, seizure, No shortness of breath, No chest pain, No loss of appetite, No malaise, No syncope, No weakness Allergies/Adverse Reactions: No Known Drug Allergies Allergy (Verified 12/13/22 14:16) Home Medications: Clobazam [Onfi] 20 mg PO QAM 03/31/22 [History] Clobazam [Onfi] 40 mg PO QHS 03/31/22 [History] Escitalopram Oxalate 5 mg PO QAM 03/31/22 [History] LORazepam [Lorazepam] 1 mg PO TID 03/31/22 [History] Lamotrigine 100 mg [lamICTAL 100MG TABLET] 300 mg PO QHS 03/31/22 [History] Topiramate 100 mg [Topamax 100 MG] 100 mg PO QAM 03/31/22 [History] Topiramate 100 mg [Topamax 100 MG] 200 mg PO QHS 03/31/22 [History] Trazodone HCl 100 mg PO QHS 03/31/22 [History] lamoTRIgine [Lamotrigine] 150 mg PO QAM 03/31/22 [History] Levetiracetam [Keppra] 750 mg PO BID 12/03/22 [History] Hx Tetanus, Diphtheria Vaccination/Date Given: No Hx Influenza Vaccination/Date Given: No Hx Pneumococcal Vaccination/Date Given: No Travel Risk - International Travel Have you traveled outside of the country in past 3 weeks: No - Coronavirus Screening Are you exhibiting any of the following symptoms?: No Close contact with a COVID-19 positive Pt in past 14-21 Days: No - Vaccine Status Have you recieved a Covid-19 vaccination: No - Review of Systems Constitutional: No Symptoms Eyes: No Symptoms Ears, Nose, & Throat: No Symptoms Respiratory: No Symptoms Cardiac: No Symptoms Abdominal/Gastrointestinal: Nausea Genitourinary Symptoms: No Symptoms Musculoskeletal: Injury Skin: Skin Lesions Neurological: Headache, Seizure Endocrine: No Symptoms Hematologic/Lymphatic: No Symptoms Immunological/Allergic: No Symptoms - Past Medical History Pertinent Past Medical History: Yes Neurological History: Seizures ENT History: No Pertinent History, Cataracts Cardiac History: No Pertinent History Respiratory History: No Pertinent History Endocrine Medical History: No Pertinent History Musculoskeletal History: No Pertinent History GI Medical History: No Pertinent History History: No Pertinent History Psycho-Social History: No Pertinent History Male Reproductive Disorders: No Pertinent History Other Medical History: Vagus nerve Stimulator device implanted - Past Surgical History Past Surgical History: Yes Neuro Surgical History: Other Cardiac: No Pertinent History Respiratory: No Pertinent History Gastrointestinal: No Pertinent History Genitourinary: No Pertinent History Musculoskeletal: No Pertinent History Male Surgical History: No Pertinent History Other Surgical History: vagal nerve stimulator - Social History Smoking Status: Never smoker Exposure to second hand smoke: Yes Drug Use: none Patient Lives Alone: Yes Significant Family History: no pertinent family hx - Nursing Vital Signs Nursing Vital Signs: Initial Vital Signs Blood Pressure 112/78 12/13/22 14:03 Pain Scale Pain Intensity 6 - Kerri Coma Score Best Eye Response (Kerri): (4) open spontaneously Best Verbal Response ([place]): (5) oriented Best Motor Response (Kerri): (6) obeys commands [place] Total: 15 - Physical Exam General Appearance: no apparent distress, alert Head Injury: contusions (Right posterior parietal area adjacent to laceration), lacerations (1.25 cm laceration right posterior parietal area with no step in deformity.), swelling, tenderness, No Velarde's Sign, No raccoon eyes Eye Exam: bilateral eye: normal inspection, PERRL, EOMI ENT Exam: airway nml, nml ext.inspection, No evidence of ENT injury, No dental injury Neck Exam: supple, trachea midline, full range of motion, normal alignment, normal inspection Cardiovascular/Respiratory Exam: chest non-tender, normal breath sounds, regular rate/rhythm Gastrointestinal/Abdominal Exam: soft, non tender, no distention, no mass, no guarding, no ecchymosis Back Exam: normal inspection, normal range of motion Extremity Exam: non-tender, normal range of motion, normal inspection, calf tenderness Mental Status Exam: alert, oriented x 3, cooperative cafeteria monitor Exam: normal hearing, normal speech, PERRL Coordination/Gait Exam: normal finger to nose Motor/Sensory Exam: no motor deficit, no sensory deficit DTR Exam: bicep (R): 2+, bicep (L): 2+, knee (R): 2+, knee (L): 2+ Skin Exam: normal color SpO2 Interpretation: normal SpO2: 100 O2 Delivery: Room Air Procedures - Laceration/Wound Repair Right Parietal Time of Procedure: 17:00 Wound Location: Right Wound Length (cm): 1.25 Wound's Depth, Shape: into muscle, irregular Wound Explored: clean Irrigated: Yes Hibiclens Prep: Yes Anesthesia: 1% Lidocaine Volume Anesthetic (ccs): 3 Wound Repaired With: Ian Number of Sutures: 3 Layer Closure?: No Sterile Dressing Applied?: No Progress: 12/13/22 17:10 Patient tolerated procedure very well Ordered Tests: Active Orders 24 hr Category Date Time Status CERVICAL SPINE WO CONTRAST [CT] Stat Exams 12/13/22 14:21 Completed HEAD WITHOUT CONTRAST [CT] Stat Exams 12/13/22 14:22 Completed CBC Stat Lab 12/13/22 14:39 Completed CMP Stat Lab 12/13/22 14:39 Completed Medication Summary Discontinued Medications Generic Name Dose Route Start Last Admin Trade Name Yoana PRN Reason Stop Dose Admin Acetaminophen 1,000 mg 12/13/22 14:30 12/13/22 14:53 Acetaminophen 500 Mg Tablet PO 12/13/22 14:31 1,000 mg STAT ONE Administration Acetaminophen Confirm 12/13/22 14:29 Acetaminophen 500 Mg Tablet Administered 12/13/22 14:30 Dose 1,000 mg .ROUTE .STK-MED ONE Sodium Chloride 1,000 mls @ 999 mls/hr 12/13/22 14:23 12/13/22 14:28 Sodium Chloride 0.9% 1000 Ml IV 12/13/22 15:23 999 mls/hr .Q1H1M STA Administration Sodium Chloride Confirm 12/13/22 14:26 Sodium Chloride 0.9% 1000 Ml Administered 12/13/22 14:27 Dose 1,000 mls @ ud .ROUTE .STK-MED ONE Lorazepam Confirm 12/13/22 17:37 Lorazepam 2 Mg/1 Ml 2 Mg Vial Administered 12/13/22 17:38 Dose 2 mg .ROUTE .STK-MED ONE Morphine Sulfate 4 mg 12/13/22 16:58 12/13/22 17:02 Morphine Sulfate 4 Mg/Ml Injection IV 12/13/22 16:59 4 mg STAT ONE Administration Morphine Sulfate Confirm 12/13/22 17:01 Morphine Sulfate 4 Mg/Ml Injection Administered 12/13/22 17:02 Dose 4 mg .ROUTE .STK-MED ONE Ondansetron HCl Confirm 12/13/22 15:19 Ondansetron Hcl 4 Mg/2 Ml Vial Administered 12/13/22 15:20 Dose 4 mg .ROUTE .STK-MED ONE Ondansetron HCl 4 mg 12/13/22 15:19 12/13/22 15:22 Ondansetron Hcl 4 Mg/2 Ml Vial IV 12/13/22 15:20 4 mg STAT ONE Administration Ondansetron HCl 4 mg 12/13/22 15:42 12/13/22 15:44 Ondansetron Hcl 4 Mg/2 Ml Vial IV 12/13/22 15:43 4 mg STAT ONE Administration Ondansetron HCl Confirm 12/13/22 15:42 Ondansetron Hcl 4 Mg/2 Ml Vial Administered 12/13/22 15:43 Dose 4 mg .ROUTE .STK-MED ONE Lab/Rad Data: Laboratory Result Diagrams 12/13/22 14:39 12/13/22 14:39 Laboratory Results 12/13/22 12/13/22 Range/Units 14:39 14:39 WBC 8.2 (4.0-10.5) x10^3/uL RBC 4.29 (4.1-5.6) x10^6/uL Hgb 13.6 (12.5-18.0) g/dL Hct 39.7 L (42-50) % MCV 92.5 (78-100) fL MCH 31.7 (26-32) pg MCHC 34.3 (32-36) g/dL RDW 13.7 (11.5-14.0) % Plt Count 197 (150-450) x10^3/uL MPV 10.7 (7.5-11.0) fL Sodium 142 (137-145) mmol/L Potassium 3.7 (3.5-5.1) mmol/L Chloride 112 H (98-107) mmol/L Carbon Dioxide 17 L (22-30) mmol/L Anion Gap 17.5 H (5-15) MEQ/L BUN 14 (9-20) mg/dL Creatinine 1.05 (0.66-1.25) mg/dL Estimated GFR > 60.0 ML/MIN Glucose 122 H (74-106) mg/dL Calcium 8.8 (8.4-10.2) mg/dL Total Bilirubin 0.40 (0.2-1.3) mg/dL AST 27 (17-59) U/L ALT 32 (0-50) U/L Alkaline Phosphatase 114 (38-126) U/L Serum Total Protein 8.2 (6.3-8.2) g/dL Albumin 4.3 (3.5-5.0) g/dL - Progress Progress: improved, pain not gone completely, re-examined Progress Note: 12/13/22 17:11 27-year-old with history of poorly controlled seizures, migraine is evaluated in the ER after he had a seizure activity at home and fell backward with a laceration posterior parietal area and some confusion. Patient has nonfocal neuro exam throughout her stay in the ER. Baseline labs fairly unremarkable, given fluids and symptomatic treatment. CT head showed scalp hematoma and left parietal lobe hemorrhagic contusion. Called [facility], no neurosurg sarah services are available in [place]. Called [facility] and patient is excepted by Dr. Lemus at [facility]. I have a thorough discussion with patient/mom and brother who is the POA about current work-up, management and plan of transfer and they all understand and agree with it. 12/13/22 17:43 Right before transfer patient has a couple of seizure episodes each lasting less than 1 minute, given Ativan which helped. Ready to leave with a stable vitals. Counseled pt/family regarding: lab results, diagnosis, need for follow-up, rad results Medical Desision Making - Independent Historian Additional History obtained from: Mother, Family, EMS - Discussion of managment Care discussed with:: on-call "doc" (Dr. Allan [facility]) Reviewed:: Test results Agreed on:: Treatment plan Will see patient: in ED - Diagnostic Testing Diagnostic test were ordered, analyzed, and reviewed by me: Yes Radiological Interpretation: Reviewed by me, Teleradiologist Report - Risk of complications The pt has a high risk of morbidity or mortality based on: Decision regarding hospitilization or escalation of hosp level of care, Need for parental consent - Departure Departure Disposition: Transfer Clinical Impression: Laceration of scalp, Seizures, Intracranial hemorrhage Condition: Stable Critical Care Time: No Referrals: MITA VELASQUEZ MD [Primary Care Provider] - Follow up/PCP as directed
--- NOTE | 2022-12-13 16:07 | XRAY ---
CLINICAL HISTORY:fall; COMPARISON:12/02/2022.; TECHNIQUES:Multiplanar non-contrast CT head performed without contrast. CTDI: 71 mGy, DLP: 1447 mGy*cm; FINDINGS: Right parietal subgaleal scalp hematoma measuring 1.1 x 5.5 cm was noted. No underlying bony injury detected. 4 mm focal hyperdensity left posterior temporal lobe is most likely volume averaging or a small focal hemorrhagic contusion, advise clinical correlation and follow up. The rest of visualized brain parenchyma shows normal appearance. Child-white matter differentiation is maintained. No midline shifts or deformity. No intracerebral or extra axial hematoma. Normal size and configuration of the cerebral ventricles. Normal CT appearance of the posterior fossa structures namely the cerebellar hemispheres, brainstem and cerebellar peduncles. The IACs are unremarkable. The cerebello-pontine angles are clear. The osseous structures in the skull base are unremarkable. No definite calvarium fractures. Th2 scanned paranasal sinuses are clear. Bowing of nasal septum to right. IMPRESSION: 1. Right parietal subgaleal scalp hematoma measuring 1.1 x 5.5 cm was noted. No underlying bony injury detected. 2. 4 mm focal hyperdensity left posterior temporal lobe is most likely volume averaging or a small focal hemorrhagic contusion, advise clinical correlation and follow-up. The [facility] office was called at [phone] at 02:53 GEOTHERMAL INSTALLER, 12/13/2022 and the Significant medical findings are verbally communicated with Scar Tobar. Electronically Signed by: Leland Abraham MD. (12/13/2022 14:58:33 GEOTHERMAL INSTALLER)
[2022-12-13 16:43] VITALS: PULSE 78
[2022-12-13] MEDS ORDERED: MORPHINE SULFATE 4 MG INJ IV ONE (16:58)
[2022-12-13] MEDS ORDERED: MORPHINE SULFATE 4 MG INJ ONE (17:01)
[2022-12-13] MEDS ORDERED: Ativan 2 MG/1 ML VIAL ONE (17:37)
[2022-12-13] MEDS ORDERED: Ativan 2 MG/1 ML VIAL IV ONE (17:43)
[2022-12-13 17:58] VITALS: BP 110/66
== END 2022-12-13 18:02 | disposition short-term general hospital (02) ==
LOC: ED 14:03
DX: R56.9 Unspecified convulsions (principal); S01.01XA Laceration without foreign body of scalp, initial encounter; W18.30XA Fall on same level, unspecified, initial encounter; I62.9 Nontraumatic intracranial hemorrhage, unspecified; Z79.899 Other long term (current) drug therapy; Z20.828 Contact with and (suspected) exposure to other viral communicable diseases
CPT/HCPCS: 12001; 36415; 70450; 72125; 80053; 85027; 96360; 96374; 96375; 96376; 99284; J2060; J2270; J2405; A9270-GY